=== PATIENT | female | born 1940 | race Caucasian/White ===

== ENCOUNTER 2017-09-16 12:55 | Outpatient (CLI) | payer MEDICARE, OTHER ==
--- NOTE | 2017-09-16 17:10 | CT ---
CT PARANASAL SINUSES NONCONTRAST: 09/16/17 HISTORY: 77-year-old female with headache and unilateral left sided rhinorrhea. FINDINGS: No obvious defect is identified involving the cribriform plate, orbital roofs, or planum sphenoidale . The frontal, ethmoid, maxillary, and sphenoid, sinuses, are clear. The nasal cavity is clear. Bila teral ostiomeatal units, frontal recesses, and sphenoethmoidal recesses, are clear and patent. Bilat eral tympanomastoid cavities are grossly clear. 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 IMPRESSION: 1. Paranasal sinuses are clear. 2. Osteoarthrosis of the bilateral temporomandibular joints, left worse than right. POS: [facility]
== END 2017-09-16 12:56 | disposition home or self-care (01) ==
LOC: SCSCT 12:55
PROVIDERS: ATTEND Otolaryngology Plastic Surgery within the Head & Neck
DX: R51 Headache (principal); J30.9 Allergic rhinitis, unspecified; M15.8 Other polyosteoarthritis

== ENCOUNTER 2017-11-13 09:49 | Emergency (ER) | payer MEDICARE, OTHER | END 2017-11-13 11:38 | disposition home or self-care (01) | LOC: ERS 09:49 | DX: L27.0 Generalized skin eruption due to drugs and medicaments taken internally (principal); I10 Essential (primary) hypertension; T49.0X5A Adverse effect of local antifungal, anti-infective and anti-inflammatory drugs, initial encounter; Z79.899 Other long term (current) drug therapy | CPT/HCPCS: 99283 ==

== ENCOUNTER 2017-11-17 11:43 | Emergency (ER) | payer MEDICARE, OTHER ==
[2017-11-17] MEDS ORDERED: Lidocaine 1% w/Epinephrine 1:200K 30 ML VIAL ONE (13:18)
[2017-11-17 13:32] LABS: #Eosinphils 0.2 thou/uL (0.0-0.7); #Monocytes 0.6 thou/uL (0.11-0.59); #Neutrophils 5.3 thou/uL (1.40-6.50); %Basophils 0.4 % (0.0-1.0); %Eosinophils 3.5 % (0.0-10.0); %Lymphocytes 13.4 % (21.0-51.0); %Monocytes 8.9 % (0.0-10.0); Hematocrit 41.5 % (36.0-47.0); Mean Platelet Volume 7.5 fL (7.4-10.4); White Blood Cell (WBC) Count 7.1 thou/uL (4.8-10.8)
[2017-11-17 13:53] LABS: ALT (SGPT) 27 U/L (8-55); AST (SGOT) 36 U/L (5-34); Alkaline Phosphatase 72 U/L (40-150); Anion Gap 13 mmol/L (10-20); BUN (Urea Nitrogen) 10 mg/dL (9.8-20.1); Bilirubin, Total 0.7 mg/dL (0.2-1.2); Calc. Creatinine Clearance 0 mL/min (70-130); Calcium 9.6 mg/dL (7.8-10.44); Carbon Dioxide 26 mmol/L (23-31); Chloride 102 mmol/L (98-107); Estimated GFR-MDRD 81; Globulin 3.4 g/dL (2.4-3.5); Protein, Total 7.4 g/dL (6.0-8.3)
[2017-11-17] MEDS ORDERED: Clindamycin/D5W 900 mg/50 ml Premix Bag ONE (13:58)
[2017-11-17] MEDS ORDERED: traMADol HCl 50 MG TAB ONE (14:08)
== END 2017-11-17 15:37 | disposition home or self-care (01) ==
LOC: ERS 11:43
DX: L02.01 Cutaneous abscess of face (principal); L03.211 Cellulitis of face; I10 Essential (primary) hypertension
CPT/HCPCS: 80053; 83605; 85025; 96365; J3490

== ENCOUNTER 2018-01-03 11:50 | Inpatient (IN) | payer MEDICARE, OTHER ==
--- NOTE | 2018-01-03 12:25 | RAD ---
CHEST 1 VIEW: HISTORY: Cough. COMPARISON: 10/15/08. FINDINGS: Cardiac silhouette is magnified by projection. Pulmonary vasculature is unremarkable. Mediastinum i s midline. There is no confluent airspace consolidation or evidence of pneumothorax. IMPRESSION: No active cardiopulmonary abnormalities are demonstrated. POS: [facility]
[2018-01-03] MEDS ORDERED: Ondansetron HCl/PF 4 MG/2 ML Vial ONE (12:34)
[2018-01-03 12:47] LABS: ALT (SGPT) 21 U/L (8-55); AST (SGOT) 33 U/L (5-34); Alkaline Phosphatase 54 U/L (40-150); Anion Gap 16 mmol/L (10-20); BUN (Urea Nitrogen) 10 mg/dL (9.8-20.1); Bilirubin, Total 0.8 mg/dL (0.2-1.2); CK (CPK) 52 U/L (29-168); Calc. Creatinine Clearance 0 mL/min (70-130); Calcium 9.1 mg/dL (7.8-10.44); Carbon Dioxide 21 mmol/L (23-31); Chloride 103 mmol/L (98-107); Estimated GFR-MDRD 76; Glucose 132 mg/dL (83-110); Lipase 50 U/L (8-78); Potassium 4.1 mmol/L (3.5-5.1); Sodium 136 mmol/L (136-145)
[2018-01-03 12:49] LABS: CKMB 1.2 ng/mL (0-6.6); Troponin I 0.019 ng/mL (< 0.028)
[2018-01-03 13:21] LABS: #Lymphocytes 0.5 thou/uL (1.20-3.40); #Monocytes 0.4 thou/uL (0.11-0.59); #Neutrophils 3.6 thou/uL (1.40-6.50); %Basophils 0.2 % (0.0-1.0); %Eosinophils 0.5 % (0.0-10.0); %Lymphocytes 10.9 % (21.0-51.0); %Monocytes 9.1 % (0.0-10.0); %Neutrophils 79.3 % (42.0-75.0); Hemoglobin 14.2 g/dL (12.0-16.0); MDiff Complete? YES; Mean Corpuscular HGB CONC 34.5 g/dL (32.0-36.0); Mean Corpuscular Volume 92.6 fl (81.0-99.0); Mean Platelet Volume 10.6 fL (7.4-10.4); Ovalocytes SLIGHT = 2-5 cells (100X) (0-1/hpf); PLT Morphology Comment Appears Decreased; Platelet Count 42 thou/uL (130-400); RBC Distribution Width 12.3 % (11.5-14.5); Red Blood Cell (RBC) Count 4.45 mill/uL (4.20-5.40); Tear Drops SLIGHT = 2-5 cells (100X) (0-1/hpf); White Blood Cell (WBC) Count 4.5 thou/uL (4.8-10.8)
[2018-01-03] MEDS ORDERED: Oseltamivir 75 MG CAP PO SCH (13:30)
[2018-01-03 14:02] LABS: Bilirubin Negative (Negative); Blood, Urine Negative (Negative); Clarity CLEAR (Clear); Glucose, Urine (Dipstick) Negative (Negative); Leukocyte Negative (Negative); Nitrite Negative (Negative); Protein, Urine (Dipstick) Negative (Neg-Trace); Specific Gravity, Urine 1.019 (1.002-1.036); Urobilinogen 0.2 mg/dL (0.2-1.0)
[2018-01-03] MEDS ORDERED: Acetaminophen 325 MG TAB PO PRN (15:00)
[2018-01-03 15:26] LABS: Platelet Count 40 thou/uL (130-400)
[2018-01-03 15:32] LABS: Fibrinogen 307 mg/dL (253-463)
[2018-01-03 15:33] LABS: PTT 35.1 SEC (22.9-36.1); Prothrombin Time 13.6 SEC (12.0-14.7)
[2018-01-03 15:34] LABS: D-Dimer Test 0.33 *mcg/mL (0.27-0.43)
[2018-01-03 15:43] LABS: FSP-Qualitative Normal (Normal)
[2018-01-03] MEDS: Sodium Chloride 0.9% 1,000 ML IV SCH (15:45)
[2018-01-03] MEDS: Benzonatate 100 MG CAP PO SCH ×2 (15:45→21:03)
[2018-01-03] MEDS: Albuterol Sulfate 1.25 MG/3 ML NEB NEB SCH ×2 (16:20→22:50)
[2018-01-03 16:22] LABS: Lactic Acid 0.6 mmol/L (0.5-2.2)
--- NOTE | 2018-01-03 19:03 | HP ---
REASON FOR ADMISSION: Influenza B and exhaustion with bronchitis. HISTORY OF PRESENTING ILLNESS: The patient gives history of having coughing spells on Friday. This progressively got bad. She has been feeling bad with fevers of nearly 101 off and on from Friday. She developed nausea, vomiting , and diarrhea. She has had loose stools 2-3 times per day. She has lost appetite and has not been drinking or eating now. She normally ambulates with a cane. This is after right hip surgery in 2007. Her cough is usually dry with no expectoration as such. No chest pain or palpitation. PAST MEDICAL AND SURGICAL HISTORY: History of hypertension, hypothyroidism, dyslipidemia, depression, right hip surgery, left knee surgery, right foot surgery, lumbar spine surgery. CURRENT MEDICATIONS: Takes Lipitor 10 mg p.o. daily, Toprol-XL 50 mg p.o. daily , Synthroid 100 mcg p.o. daily, and Zoloft 100 mg p.o. daily. ALLERGIES: Allergic to CEPHALEXIN. PERSONAL HISTORY: Does not abuse alcohol or drugs. No history of smoking. FAMILY HISTORY: Mother of lung disease at the age of 67 years. She was not a smoker. Father committed suicide at the age of 43 years. REVIEW OF SYSTEMS: The following complete review of systems was negative, unless otherwise mentioned in the HPI or below: Constitutional: Weight loss or gain, ability to conduct usual activities. Skin: Rash, itching. Eyes: Double vision, pain. ENT/Mouth: Nose bleeding, neck stiffness, pain, tenderness. Cardiovascular: Palpitations, dyspnea on exertion, orthopnea. Respiratory: Shortness of breath, wheezing, cough, hemoptysis, fever or night sweats. Gastrointestinal: Poor appetite, abdominal pain, heartburn, nausea, vomiting, constipation, or diarrhea. Genitourinary: Urgency, frequency, dysuria, nocturia. Musculoskeletal: Pain, swelling. Neurologic/Psychiatric: Anxiety, depression. Allergy/Immunologic: Skin rash, bleeding tendency. PHYSICAL EXAMINATION: GENERAL: The patient is a 77-year-old female who is currently not in any acute distress. VITAL SIGNS: Blood pressure 140/86, pulse 94 per minute, respiratory rate 20 per minute, temperature 98.6 degrees Fahrenheit, and saturating 96% on room air. NECK: Supple, no elevated JVD. EYES: Extraocular muscles intact. Pupils reacting to light. ORAL CAVITY: Mucous membranes are dry. No exudates or congestion. CARDIOVASCULAR SYSTEM: S1, S2 heard. Regular rhythm. RESPIRATORY SYSTEM: Air entry 1+ bilateral. Scattered rhonchi plus bilateral. ABDOMEN: Soft, bowel sounds heard. No tenderness, rigidity or guarding. EXTREMITIES: No peripheral edema or calf tenderness. VASCULAR SYSTEM: Peripheral pulses 1+ bilateral. No ischemic ulcerations or gangrene. CENTRAL NERVOUS SYSTEM: No gross focal deficits seen. Patient is alert, awake , oriented well. PSYCHIATRIC SYSTEM: The patient's mood is euthymic. No hallucinations or delusions. IMAGING DATA AND LABORATORY DATA: Chest x-ray done shows no acute cardiopulmonary abnormalities, influenza B antigen is positive. Has 15 mg per deciliter of ketones in urine, serum bicarbonate 21, BUN 10, creatinine 0.7, serum glucose 132, lactic acid 2.4. BNP is less than 10. Cardiac enzymes are negative. Albumin is 4.0, lipase is 50. White count of 4.5, hemoglobin and hematocrit 14 and 41, platelet count is 42 with 79% neutrophils. EKG done shows normal sinus rhythm. CLINICAL IMPRESSION AND PLAN: Patient will be admitted to medical floor for influenza B, severe thrombocytopenia which is a new finding, we will obtain DIC panel. She is also exhausted and dehydrated from ongoing coughing spells along with fever, diarrhea, nausea, and vomiting from Friday. She will be gently hydrated with normal saline at 70 mL per hour. Tamiflu 75 mg p.o. twice daily, Mucinex, Tessalon Perles and empiric Levaquin as well for her acute bronchitis to prevent secondary bacterial infection. She will also been on albuterol nebulizer q.8 hourly. We will continue her atorvastatin, Synthroid, Toprol-XL at a lower dose and Zoloft as before. We will continue to closely monitor her on the medical floor. [facility] HOSPITALMerari
[2018-01-03] MEDS: guaiFENesin ER 600 MG TAB PO SCH (21:03)
[2018-01-03] MEDS: Oseltamivir 75 MG CAP PO SCH (21:03)
[2018-01-03] MEDS: Famotidine 20 MG TAB PO SCH (21:03)
[2018-01-03] MEDS: Atorvastatin Calcium 10 MG TAB PO SCH (21:07)
[2018-01-03] MEDS: Guaifenesin DM 100-10/5 ML UDCUP PO PRN (21:07)
[2018-01-04 05:46] VITALS: BMI 24.7
[2018-01-04 06:34] LABS: Anion Gap 8 mmol/L (10-20); BUN (Urea Nitrogen) 6 mg/dL (9.8-20.1); Calc. Creatinine Clearance 77 mL/min (70-130); Calcium 7.7 mg/dL (7.8-10.44); Carbon Dioxide 22 mmol/L (23-31); Chloride 111 mmol/L (98-107); Estimated GFR-MDRD 88; Glucose 99 mg/dL (83-110); Potassium 3.1 mmol/L (3.5-5.1); Sodium 138 mmol/L (136-145)
[2018-01-04] MEDS: Albuterol Sulfate 1.25 MG/3 ML NEB NEB SCH ×3 (06:41→23:26)
[2018-01-04] MEDS: Levothyroxine Sodium 100 MCG TAB PO SCH (06:44)
[2018-01-04] MEDS: Sodium Chloride 0.9% 1,000 ML IV SCH ×2 (06:44→21:42)
[2018-01-04 07:17] LABS: #Lymphocytes 0.8 thou/uL (1.20-3.40); #Monocytes 0.3 thou/uL (0.11-0.59); #Neutrophils 1.1 thou/uL (1.40-6.50); %Basophils 0.6 % (0.0-1.0); %Eosinophils 1.1 % (0.0-10.0); %Lymphocytes 37.2 % (21.0-51.0); %Monocytes 13.7 % (0.0-10.0); %Neutrophils 47.3 % (42.0-75.0); Hemoglobin 10.7 g/dL (12.0-16.0); Mean Corpuscular HGB CONC 33.7 g/dL (32.0-36.0); Mean Corpuscular Hemoglobin 31.3 pg (27.0-31.0); Mean Corpuscular Volume 92.9 fl (81.0-99.0); Mean Platelet Volume 9.9 fL (7.4-10.4); PLT Morphology Comment Appears Decreased; Platelet Count 36 thou/uL (130-400); RBC Distribution Width 12.2 % (11.5-14.5); Red Blood Cell (RBC) Count 3.43 mill/uL (4.20-5.40); White Blood Cell (WBC) Count 2.2 thou/uL (4.8-10.8)
[2018-01-04 07:19] LABS: MDiff Complete? YES
[2018-01-04] MEDS ORDERED: Potassium Chloride 20 MEQ TAB PO SCH (08:00)
[2018-01-04] MEDS: Benzonatate 100 MG CAP PO SCH ×3 (08:29→21:42)
[2018-01-04] MEDS: guaiFENesin ER 600 MG TAB PO SCH ×2 (08:30→21:42)
[2018-01-04] MEDS: Oseltamivir 75 MG CAP PO SCH ×2 (08:30→21:42)
[2018-01-04] MEDS: Famotidine 20 MG TAB PO SCH ×2 (08:30→21:42)
[2018-01-04] MEDS: Guaifenesin DM 100-10/5 ML UDCUP PO PRN ×2 (08:31→21:42)
[2018-01-04] MEDS ORDERED: Enoxaparin Sodium 40 MG/0.4 ML SYRINGE SC SCH (09:00)
--- NOTE | 2018-01-04 14:47 | PDOC.PN ---
- Subjective Encounter Start Date: 01/04/18 Encounter Start Time: 14:42 Subjective: feels weak and tired. -: coughing - Objective Resuscitation Status: Resuscitation Status FULL:Full Resuscitation MAR Reviewed: Yes Vital Signs & Weight: Vital Signs (12 hours) Temp Pulse Resp BP Pulse Ox 01/04/18 11:36 97.4 F L 73 16 148/81 H 96 01/04/18 08:52 98.6 F 78 18 94 L 01/04/18 08:17 98.6 F 78 18 131/76 94 L 01/04/18 06:41 80 14 01/04/18 03:48 98.9 F 69 16 125/71 93 L Weight Weight 153 lb Result Diagrams: 01/04/18 05:54 01/04/18 05:54 Additional Labs: Microbiology 01/03/18 12:04 Nasal swab Influenza Types A,B Direct EIA - Final 01/03/18 13:15 Venous blood - Left Hand Blood Culture - Preliminary Specimen has been received and culture in progress. No Growth to date. 01/03/18 13:11 Venous blood - Right Hand Blood Culture - Preliminary Specimen has been received and culture in progress. No Growth to date. Laboratory Tests 01/03/18 01/03/18 01/03/18 12:09 12:09 12:09 Lactic Acid 2.4 H Troponin I 0.019 B-Natriuretic Peptide Less than 10.0 01/03/18 16:00 Lactic Acid 0.6 Troponin I B-Natriuretic Peptide Phys Exam - Physical Examination Constitutional: NAD HEENT: PERRLA, moist MMs, sclera anicteric, oral pharynx no lesions Neck: no nodes, no JVD, supple, full ROM Respiratory: wheezing present wheezing Cardiovascular: RRR, no significant murmur Gastrointestinal: soft, non-tender, no distention, positive bowel sounds Musculoskeletal: no edema, pulses present Neurological: non-focal, normal sensation, moves all 4 limbs Psychiatric: normal affect, A&O x 3 Dx/Plan (1) Influenza Code(s): J11.1 - FLU DUE TO UNIDENTIFIED INFLUENZA VIRUS W OTH RESP MANIFEST Status: Acute (2) Hypokalemia Code(s): E87.6 - HYPOKALEMIA Status: Acute (3) Pancytopenia Code(s): D61.818 - OTHER PANCYTOPENIA Status: Acute (4) HTN (hypertension) Code(s): I10 - ESSENTIAL (PRIMARY) HYPERTENSION Status: Acute (5) Dehydration Code(s): E86.0 - DEHYDRATION Status: Acute (6) Acute bronchitis Code(s): J20.9 - ACUTE BRONCHITIS, UNSPECIFIED Status: Acute - Plan continue antibiotics, PT/OT, incentive spirometry, out of bed/ambulate, DVT proph w/SCDs cont IVF.cont empiric ABx.Tamiflu.nebs,O2,mucinex,IS -: platelet counts still low. DIC panel Nl.no active bleed -: DC lovenox & monitor.Check SPEP/UPEP.? MDS Vs sepsis related -: OOB.OT,PT. AM labs. -: rteplace & recheck poatssium. * . Review of Systems - Review of Systems Constitutional: weakness, malaise Respiratory: Cough, SOB with Excertion. negative: Dry, Shortness of Breath, Hemoptysis, Pleuritic Pain, Sputum, Wheezing Gastrointestinal: Nausea. negative: Vomiting, Abdominal Pain, Diarrhea, Constipation, Melena, Hematochezia, Other Genitourinary: negative: Dysuria, Frequency, Incontinence, Hematuria, Retention , Other Musculoskeletal: negative: Neck Pain, Shoulder Pain, Arm Pain, Back Pain, Hand Pain, Leg Pain, Foot Pain, Other Neurological: negative: Weakness, Numbness, Incoordination, Change in Speech, Confusion, Seizures, Other - Medications/Allergies Allergies/Adverse Reactions: Allergies Allergy/AdvReac Type Severity Reaction Status Date / Time cephalexin Allergy Verified 01/03/18 13:15 Medications: Current Medications Acetaminophen (Tylenol) 650 mg PO Q4H PRN PRN Reason: Headache/Fever or Pain Albuterol Sulfate (Albuterol Sulfate) 1.25 mg NEB [id number] [facility] Last Admin: 01/04/18 06:41 Dose: 1.25 mg Atorvastatin Calcium (Lipitor) 10 mg PO HS [facility] Last Admin: 01/03/18 21:07 Dose: 10 mg Benzonatate (Tessalon) 100 mg PO TID [facility] Last Admin: 01/04/18 08:29 Dose: 100 mg Famotidine (Pepcid) 20 mg PO BID [facility] Last Admin: 01/04/18 08:30 Dose: 20 mg Guaifenesin (Mucinex) 600 mg PO Q12HR [facility] Last Admin: 01/04/18 08:30 Dose: 600 mg Guaifenesin/Dextromethorphan (Robitussin Dm) 15 ml PO Q4H PRN PRN Reason: Cough Last Admin: 01/04/18 08:31 Dose: 15 ml Sodium Chloride (Normal Saline 0.9%) 1,000 mls @ 70 mls/hr IV .[id number] [facility] Last Admin: 01/04/18 06:44 Dose: 1,000 mls Levofloxacin (Levaquin) 500 mg PO 0600 [facility] Last Admin: 01/04/18 06:44 Dose: 500 mg Levothyroxine Sodium (Synthroid) 100 mcg PO 0600 [facility] Last Admin: 01/04/18 06:44 Dose: 100 mcg Metoprolol Succinate (Toprol Xl) 25 mg PO DAILY [facility] Last Admin: 01/04/18 08:30 Dose: 25 mg Oseltamivir Phosphate (Tamiflu) 75 mg PO BID [facility] Stop: 01/08/18 09:01 Last Admin: 01/04/18 08:30 Dose: 75 mg Sertraline HCl (Zoloft) 100 mg PO DAILY [facility] Last Admin: 01/04/18 08:30 Dose: 100 mg
[2018-01-04 15:52] LABS: Acanthocytes SLIGHT = 1-5 cells (100X) (None Seen); Band 4 % (5-11); Hemoglobin 11.5 g/dL (12.0-16.0); Lymphocytes 18 % (21-51); MDiff Complete? YES; Mean Corpuscular HGB CONC 33.4 g/dL (32.0-36.0); Mean Corpuscular Hemoglobin 31.1 pg (27.0-31.0); Mean Corpuscular Volume 93.3 fl (81.0-99.0); Mean Platelet Volume 10.2 fL (7.4-10.4); Monocytes 3 % (0-10); Neutrophil 75 % (42-75); Ovalocytes SLIGHT = 2-5 cells (100X) (0-1/hpf); PLT Morphology Comment Appears Decreased; Platelet Count 36 thou/uL (130-400); RBC Distribution Width 12.5 % (11.5-14.5); Red Blood Cell (RBC) Count 3.69 mill/uL (4.20-5.40); White Blood Cell (WBC) Count 2.1 thou/uL (4.8-10.8)
[2018-01-04] MEDS: Atorvastatin Calcium 10 MG TAB PO SCH (21:42)
[2018-01-05 05:59] LABS: #Lymphocytes 0.9 thou/uL (1.20-3.40); #Monocytes 0.2 thou/uL (0.11-0.59); #Neutrophils 1.1 thou/uL (1.40-6.50); %Basophils 0.5 % (0.0-1.0); %Eosinophils 0.8 % (0.0-10.0); %Lymphocytes 38.8 % (21.0-51.0); %Monocytes 9.8 % (0.0-10.0); %Neutrophils 50.1 % (42.0-75.0); Hemoglobin 11.4 g/dL (12.0-16.0); Mean Corpuscular HGB CONC 33.6 g/dL (32.0-36.0); Mean Corpuscular Hemoglobin 31.3 pg (27.0-31.0); Mean Corpuscular Volume 93.2 fl (81.0-99.0); Mean Platelet Volume 10.3 fL (7.4-10.4); Platelet Count 39 thou/uL (130-400); RBC Distribution Width 12.3 % (11.5-14.5); Red Blood Cell (RBC) Count 3.65 mill/uL (4.20-5.40); White Blood Cell (WBC) Count 2.2 thou/uL (4.8-10.8)
[2018-01-05 06:14] LABS: Anion Gap 9 mmol/L (10-20); BUN (Urea Nitrogen) 5 mg/dL (9.8-20.1); Calc. Creatinine Clearance 82 mL/min (70-130); Calcium 8.2 mg/dL (7.8-10.44); Carbon Dioxide 24 mmol/L (23-31); Chloride 109 mmol/L (98-107); Estimated GFR-MDRD Greater than 90; Glucose 87 mg/dL (83-110); Potassium 3.9 mmol/L (3.5-5.1); Sodium 138 mmol/L (136-145)
[2018-01-05] MEDS: Levothyroxine Sodium 100 MCG TAB PO SCH (06:46)
[2018-01-05] MEDS: Albuterol Sulfate 1.25 MG/3 ML NEB NEB SCH (07:20)
[2018-01-05] MEDS: Famotidine 20 MG TAB PO SCH (09:00)
[2018-01-05] MEDS: Benzonatate 100 MG CAP PO SCH (09:00)
[2018-01-05] MEDS: Oseltamivir 75 MG CAP PO SCH (09:00)
[2018-01-05] MEDS: guaiFENesin ER 600 MG TAB PO SCH (09:00)
[2018-01-05 09:05] VITALS: BP 157/90; TEMP 97.6
--- NOTE | 2018-01-05 22:46 | DIS ---
DATE OF ADMISSION: 01/03/2018 DATE OF DISCHARGE: 01/05/2018 PRIMARY CARE PHYSICIAN: Alecia Clemens M.D. DISCHARGE DISPOSITION: Home. DISCHARGE DIAGNOSES: 1. Influenza B. 2. Acute bronchitis. 3. Hypokalemia. 4. Pancytopenia, likely secondary to infection. 5. Essential hypertension. DISCHARGE MEDICATIONS: Include Tamiflu 75 mg p.o. b.i.d. to complete a course of 5 days. Levofloxac in 500 mg p.o. daily for 5 more days, Florastor 250 mg b.i.d. for 10 days. Resume home medications a s follow: Synthroid 100 mcg daily, sertraline 100 mg daily, atorvastatin 10 mg daily, metoprolol suc cinate 50 mg daily. CONSULTATIONS INHOUSE: None. PROCEDURES DONE: Include chest x-ray upon presentation, which was negative for any acute infiltrate. HISTORY OF PRESENT ILLNESS: Ms. Hernandes is a 77-year-old pleasant female with past medical history of hypertension and hypothyroidism who presented to the emergency room with complaints of cou ghing spells, malaise, fever, chills, and loss of appetite. Upon presentation, her blood pressure wa s 140/86 with a pulse of 94, saturating 96% on room air. Her chest x-ray did not show any evidence o f infiltrates. She was, however, positive for influenza B. Upon presentation, she was found to have a platelet count of 42 for unknown reasons and her baseline being normal. She was admitted to medic al floor for further evaluation and workup also of the severe thrombocytopenia. Please see admission history and physical for further details. HOSPITAL COURSE: The patient had improvement in her symptoms with regard to her febrile, influenza i llness. Her counts, however, did not improve. She also had leukopenia with WBCs of 4.5 on presentat ion, which dropped down to 2.2. Her platelet count dropped down to 42 from 39. It did recover littl e bit after Lovenox was discontinued, but please note that the patient has had thrombocytopenia on pr esentation. At this time, I wanted to do further investigation for her thrombocytopenia, but the pat ient is very reluctant. High protein electrophoresis and peripheral smear have been sent. Her DIC p jonathon was checked, which was unremarkable. I discussed this finding with her and herself and gave her outpatient referral to Hematology, Dr. Tellez. I have also given her orders for blood work , checked for CBC in 2 to 3 days with outpatient followup with her primary care physician. I have di scussed the possibility of a myelodysplastic disease with her at this time and they verbalized unders tanding. I tried to tell her to that I may need to keep her here in the hospital for further evaluat ion, but at this time they are adamant to go home and because she is hemodynamically stable and this workup can be done as an outpatient, we have chosen to let her go home at this time. Home health was offered to them multiple times, but they have declined this vehemently. The patient states that her is able to take care of her, so she is discharged back home under his care. She was seen and examined prior to discharge. PHYSICAL EXAMINATION: VITAL SIGNS: Include temperature 97.6, pulse of 88, respirations 16, saturating 96% on room air, blo od pressure 157/90. GENERAL: No acute distress. She does appear pale, tired, and weak, but awake, alert, oriented x3. CHEST: Clear to auscultation without any wheezing, rales or rhonchi. Rate and rhythm is regular wit hout any murmur, rubs or gallops. LABORATORY EXAMINATION: Her blood cultures are negative x2. Her WBC is 2.2, hemoglobin is 11.4, janna telet count of 39 on discharge. Serum chemistries are rather unimpressive. Cardiac enzymes and BNP within normal limits. Urinalysis show mild ketones, otherwise unremarkable. Discharge plan was discussed with the patient and her who verbalized understanding and prescr iptions were provided. Total time spent on the discharge of this patient 32 minutes.
[2018-01-07 07:30] LABS: A/G Ratio 1.3 (0.7-1.7); Albumin 2.8 g/dL (2.9-4.4); Alpha 1 0.2 g/dL (0.0-0.4); Alpha 2 0.7 g/dL (0.4-1.0); Beta 0.6 g/dL (0.7-1.3); Gamma 0.7 g/dL (0.4-1.8); Globulin, Total 2.1 g/dL (2.2-3.9); M-Spike Not Observed g/dL (Not Observed)
[2018-01-08 11:23] LABS: Protein, Urine 5.7 mg/dL (Not Estab.)
== END 2018-01-05 12:14 | disposition home or self-care (01) | DRG 194 ==
LOC: ERS 11:50 → SURG A 13:18
PROVIDERS: ADMIT Internal Medicine; ATTEND Internal Medicine
DX: J10.1 Influenza due to other identified influenza virus with other respiratory manifestations (principal); D61.818 Other pancytopenia; E86.0 Dehydration; J20.9 Acute bronchitis, unspecified; D47.3 Essential (hemorrhagic) thrombocythemia; E03.9 Hypothyroidism, unspecified; I10 Essential (primary) hypertension; E78.5 Hyperlipidemia, unspecified; F32.9 Major depressive disorder, single episode, unspecified; E87.6 Hypokalemia
CPT/HCPCS: 36415; 71045; 80048; 80053; 81003; 82550; 82553; 83605; 83690; 83880; 84165; 84166; 84484; 85025; 85049; 85060; 85300; 85362; 85379; 85384; 85610; 85730; 87040; 87804; 93005; 94640; 96361; 96374; J1650; J2405

== ENCOUNTER 2025-04-23 08:30 | Emergency (ER) | payer MEDICARE ==
[2025-04-23 09:29] LABS: ALT (SGPT) 14 U/L (Less than 34); AST (SGOT) 24 U/L (11-34); Albumin 3.7 g/dL (3.1-4.5); Alkaline Phosphatase 57 U/L (40-110); Anion Gap 11 mmol/L (10-20); BUN (Urea Nitrogen) 16 mg/dL (9.8-20.1); Bilirubin, Total 0.7 mg/dL (0.3-1.2); Calc. Creatinine Clearance 0 mL/min (70-130); Calcium 8.4 mg/dL (7.8-10.44); Carbon Dioxide 23 mmol/L (23-31); Chloride 108 mmol/L (98-107); Estimated GFR 86; Globulin 2.8 g/dL (2.4-3.5); Glucose 114 mg/dL (83-110); Potassium 4.2 mmol/L (3.5-5.1); Protein, Total 6.5 g/dL (5.8-8.1); Sodium 138 mmol/L (136-145)
[2025-04-23 09:30] LABS: Troponin I Less than 0.010 ng/mL (< 0.028)
[2025-04-23 09:34] LABS: #Basophils 0.04 10x3/uL (0.0-0.2); #Eosinophils 0.29 10x3/uL (0.0-0.7); #Neutrophils 3.24 10x3/uL (1.40-6.50); %Basophils 0.8 % (0.0-1.0); %Eosinophils 5.5 % (0.0-10.0); %Lymphocytes 21.8 % (21.0-51.0); %Monocytes 9.6 % (0.0-10.0); %Neutrophils 61.9 % (42.0-75.0); Hematocrit 40.9 % (36.0-47.0); Hemoglobin 13.7 g/dL (12.0-16.0); Mean Corpuscular HGB CONC 33.5 g/dL (32.0-36.0); Mean Corpuscular Hemoglobin 30.9 pg (27.0-31.0); Mean Corpuscular Volume 92.3 fL (78.0-98.0); Mean Platelet Volume 9.9 fL (7.4-10.4); Platelet Count 145 10x3/uL (130-400); RBC Distribution Width 12.4 % (11.5-14.5); Red Blood Cell (RBC) Count 4.43 mill/uL (4.20-5.40); White Blood Cell (WBC) Count 5.23 10x3/uL (4.8-10.8)
[2025-04-23 09:50] LABS: INR-International Normal Ratio 1.1; PTT 31.2 sec (22.9-36.1); Prothrombin Time 14.2 sec (12.0-14.7)
[2025-04-23 10:08] LABS: Bilirubin Negative (Negative); Blood, Urine Trace (Negative); CAUTI Indications for Culture Alt mental st,lethar; Clarity Clear (Clear); Glucose, Urine (Dipstick) Normal (Negative); Ketone, Urine Negative (Negative); Leukocyte 500 Leu/uL (Negative); Nitrite Negative (Negative); Protein, Urine (Dipstick) Negative (Neg-Trace); Specific Gravity, Urine 1.026 (1.002-1.036); Urobilinogen Normal mg/dL (Less than 2); WBC/HPF 21-50 HPF (0-3)
[2025-04-23 10:11] LABS: Bacteria/HPF 1+ HPF (None Seen)
[2025-04-23 10:12] LABS: Urine Culture Reflex Yes Yes
[2025-04-23] MEDS ORDERED: LevoFLOXacin 750 mg/D5W 150 ml Premix Bag ONE (10:26)
[2025-04-23] MEDS ORDERED: Iopamidol-370 76% 500 ML MDV (1 ML CHARGE) ONE (11:29)
== END 2025-04-23 13:20 | disposition home or self-care (01) ==
LOC: ERS 08:30
DX: M25.551 Pain in right hip (principal); M54.6 Pain in thoracic spine; N39.0 Urinary tract infection, site not specified; I10 Essential (primary) hypertension; E78.00 Pure hypercholesterolemia, unspecified; E03.9 Hypothyroidism, unspecified; Z79.899 Other long term (current) drug therapy; Z79.890 Hormone replacement therapy; W19.XXXA Unspecified fall, initial encounter; Y93.9 Activity, unspecified; Y92.009 Unspecified place in unspecified non-institutional (private) residence as the place of occurrence of the external cause
CPT/HCPCS: 51701; 70450; 71260; 72125; 74177; 80053; 81001; 84484; 85025; 85610; 85730; 87077; 87086; 87186; 93005; 96365; 99284; J1956; Q9967